=== PATIENT | male | born 1995 | race Caucasian/White ===

== ENCOUNTER 2019-10-12 18:47 | Emergency (ER) | payer OTHER ==
[~2019-10-12] VITALS: Ht 182.9 cm; Wt 79.0 kg
[2019-10-12] MEDS ORDERED: SODIUM CHLORIDE FLUSH 10ML SYR IVF ONE (20:30)
[2019-10-12] MEDS ORDERED: CLINDAMYCIN PMX 600MG/50ML 50 ML IVPB ONE (21:00)
[2019-10-12] MEDS ORDERED: CLINDAMYCIN PMX 600MG/50ML 50 ML ONE (21:02)
[2019-10-12 21:05] LABS: BASOPHILS # (AUTO) 0.03 x10^3/uL (0-0.1); BASOPHILS % (AUTO) 0 % (0-1); EOSINOPHILS # (AUTO) 0.23 x10^3/uL (0-0.4); EOSINOPHILS % (AUTO) 3 % (1-7); LYMPHOCYTES # (AUTO) 3.03 x10^3/uL (1-3.4); LYMPHOCYTES % (AUTO) 35 % (22-44); MD NO; MEAN CORPUSCULAR HEMOGLOBIN 31.1 pg (27.5-34.5); MEAN CORPUSCULAR HGB CONC 33.9 g/dL (33.2-36.2); MEAN PLATELET VOLUME 7.2 fL (7.4-10.4); MONOCYTES # (AUTO) 0.59 x10^3/uL (0.2-0.8); MONOCYTES % (AUTO) 7 % (2-9); NEUTROPHILS # (AUTO) 4.92 x10^3/uL (1.8-6.8); NEUTROPHILS % (AUTO) 56 % (42-75); PLATELET COUNT 296 x10^3/uL (130-400); RED BLOOD COUNT 5.11 x10^6/uL (4.38-5.82); RED CELL DISTRIBUTION WIDTH 12.8 % (9.4-14.8)
--- NOTE | 2019-10-12 21:10 | NUR ---
CLEOCIN INFUSING PER ORDER.
--- NOTE | 2019-10-12 21:14 | NUR ---
IV PLACED, LABS DRAWN WITH START INCLUDING BC X 1. LAB [facility]ANIEL FOR 2ND CULTURE. ANTIBIOTIC INFUSING. LIGHTS DIMMED, CALL LIGHT WITHIN REACH.
[2019-10-12 21:17] LABS: ANION GAP 4 mmol/L (5-15); CHLORIDE 108 mmol/L (98-107); CREATININE 0.72 mg/dL (0.7-1.3)
[2019-10-12 22:37] VITALS: BP 122/68
== END 2019-10-12 22:56 | disposition home or self-care (01) ==
LOC: ED 21:15
DX: H70.001 Acute mastoiditis without complications, right ear (principal); H92.01 Otalgia, right ear
CPT/HCPCS: 36415; 80048; 82040; 83605; 85025; 87040; 96365

== ENCOUNTER → 2019-10-12 | Outpatient (CLI) | payer OTHER ==
[~2019-10-12] MED LIST: IBUP-1223 PO; OXYC-302 PO
== END | disposition home or self-care (01) ==
LOC: RAD 16:53
PROVIDERS: ATTEND Nurse Practitioner Family
DX: H70.891 Other mastoiditis and related conditions, right ear (principal); H66.91 Otitis media, unspecified, right ear
CPT/HCPCS: 70480